=== PATIENT | female | born 1945 | race Caucasian/White ===

== ENCOUNTER 2017-01-01 09:39 | Day surgery (SDC) | payer OTHER, MEDICARE ==
[2017-01-01 10:40] VITALS: BMI 23.6
[2017-01-01] MEDS ORDERED: PROPOFOL 20 ML ONE ×2 (10:45)
[2017-01-01 12:05] VITALS: TEMP 97.2
[2017-01-01 12:46] VITALS: BP 115/84; PULSE 82
[2017-01-01 13:03] LABS: BASOPHIL 0.5 % (0-2.0); MCH 30.5 pg (25.7-33.7); MCHC 33.1 g/dl (32.0-36.0); MEAN CELL VOLUME 92.2 fl (80-96); NEUTROPHILS 62.4 % (42.8-82.8); PLATELET COUNT 165 K/MM3 (134-434); RDW 14.5 % (11.6-15.6); WHITE BLOOD COUNT 7.1 K/mm3 (4.0-10.0)
[2017-01-01 13:16] LABS: INR 1.04 (0.82-1.09); PROTHROMBIN TIME (PATIENT) 11.5 SEC (9.98-11.88)
[2017-01-01 13:28] LABS: ALBUMIN 3.8 g/dl (3.4-5.0); ALK PHOS 69 U/L (45-117); ANION GAP 8 (8-16); BILIRUBIN,TOTAL 0.5 mg/dL (0.2-1.0); C-REACTIVE PROTEIN 0.5 MG/DL (0.00-0.3); CALCIUM 9.2 mg/dL (8.5-10.1); CO2 28 mmol/L (21-32); CREATININE 0.8 mg/dL (0.55-1.02); GLUCOSE,RANDOM 85 mg/dL (74-106); SGOT/AST 17 U/L (15-37); SGPT/ALT 23 U/L (12-78); TOT PROT 6.6 g/dl (6.4-8.2)
== END 2017-01-01 12:50 | disposition home or self-care (01) ==
LOC: JASU-ENDO 09:39
PROVIDERS: ATTEND Internal Medicine Gastroenterology
PROC: 0DB68ZX Excision of Stomach, Via Natural or Artificial Opening Endoscopic, Diagnostic (ICD-10-PCS; 2017-01-01)
PROC: 0DB48ZX Excision of Esophagogastric Junction, Via Natural or Artificial Opening Endoscopic, Diagnostic (ICD-10-PCS; 2017-01-01)
PROC: 0DB28ZX Excision of Middle Esophagus, Via Natural or Artificial Opening Endoscopic, Diagnostic (ICD-10-PCS; 2017-01-01)
PROC: 3E0G8GC Introduction of Other Therapeutic Substance into Upper GI, Via Natural or Artificial Opening Endoscopic (ICD-10-PCS; 2017-01-01)
PROC: 0DB98ZX Excision of Duodenum, Via Natural or Artificial Opening Endoscopic, Diagnostic (ICD-10-PCS; principal; 2017-01-01 10:30)
DX: K31.7 Polyp of stomach and duodenum (principal); K44.9 Diaphragmatic hernia without obstruction or gangrene; K26.9 Duodenal ulcer, unspecified as acute or chronic, without hemorrhage or perforation; D13.2 Benign neoplasm of duodenum; K29.80 Duodenitis without bleeding; K31.89 Other diseases of stomach and duodenum; K21.9 Gastro-esophageal reflux disease without esophagitis; K29.50 Unspecified chronic gastritis without bleeding; B96.81 Helicobacter pylori [H. pylori] as the cause of diseases classified elsewhere; E78.5 Hyperlipidemia, unspecified; H40.20X0 Unspecified primary angle-closure glaucoma, stage unspecified; M85.80 Other specified disorders of bone density and structure, unspecified site
CPT/HCPCS: 36415; 80053; 82378; 82941; 85025; 85610; 86140; 86316

== ENCOUNTER 2018-10-10 07:42 | Day surgery (SDC) | payer OTHER, MEDICARE ==
[2018-10-10 07:58] VITALS: BMI 24.0
[2018-10-10] MEDS ORDERED: LIDOCAINE HCL 2% JELLY 10 ML CARTRIDGE ONE (09:17)
[2018-10-10] MEDS ORDERED: ACETAMINOPHEN 325 MG TABLET (FP) ONE (09:39)
[2018-10-10 10:20] VITALS: BP 143/71; PULSE 61; TEMP 97.9
--- NOTE | 2018-10-11 12:34 | PATH ---
Surgical Pathology Report Patient Name: JOSUE OLVERA [facility]. Rec. #: [id number] /Age/Gender: 1945 (Age: 73) / F Account: [id number] Location: U-ENDOSCOPY Taken: 10/10/2018 Received: 10/10/2018 Reported: 10/11/2018 Physicians: Thuy Price M.D. Specimen(s) Received POLYP SIGMOID Clinical History Rectal bleeding Postoperative diagnosis: Diverticulosis, internal hemorrhoids, colon polyps Final Diagnosis COLON, SIGMOID, BIOPSY: COLONIC MUCOSA WITH EXTRAVASATION OF RED BLOOD CELLS WITHIN LAMINA PROPRIA. NO ACTIVE COLITIS, ARCHITECTURAL DISTORTION, GRANULOMATA, OR DYSPLASIA IDENTIFIED. NO MICROSCOPIC COLITIS IDENTIFIED (NO LYMPHOCYTIC OR COLLAGENOUS COLITIS IDENTIFIED). Electronically Signed Valdemar Arnold M.D. Gross Description Received in formalin, labeled "sigmoid polyp" are 2 palomino, irregular portions of soft tissue measuring 0.4 and 0.5 cm. in greatest dimension. The specimens are submitted in toto in one cassette. /10/10/2018 [facility]10/10/2018
== END 2018-10-10 10:36 | disposition home or self-care (01) ==
LOC: JASU-ENDO 07:42
PROVIDERS: ATTEND Internal Medicine Gastroenterology
PROC: 0DBN8ZX Excision of Sigmoid Colon, Via Natural or Artificial Opening Endoscopic, Diagnostic (ICD-10-PCS; 2018-10-10)
PROC: 06LY4CC Occlusion of Hemorrhoidal Plexus with Extraluminal Device, Percutaneous Endoscopic Approach (ICD-10-PCS; principal; 2018-10-10 08:45)
DX: K64.8 Other hemorrhoids (principal); K92.1 Melena; K57.30 Diverticulosis of large intestine without perforation or abscess without bleeding; D12.5 Benign neoplasm of sigmoid colon
CPT/HCPCS: 88305-TC